=== PATIENT | female | born 1960 | race African-American/Black ===

== ENCOUNTER 2020-07-22 09:43 | Emergency (ER) | payer OTHER, SELFPAY ==
[2020-07-22 09:54] VITALS: BP 148/86; PULSE 64; RESP 16; TEMP 36.2; O2SAT 100
--- NOTE | 2020-07-22 10:10 | ED.BACK ---
HPI - Back Pain/Injury General Chief Complaint: Back Pain/Injury Stated Complaint: RIGHT HIP AND LEG PAIN Time Seen by Provider: 07/22/20 10:05 History of Present Illness HPI Narrative: Cha Skinner is a 59 yo female with PMH of HTN, high cholesterol, who comes to the ER complaining of right-sided lower back and leg pain. He states it started 2 days ago, uncomfortable particularly at night or when she sitting working on a computer. She is very active working at home with snf she has a lot of homework so she sitting in front of computer. Is not really able to stretch her leg out Related Data Allergies Allergy/AdvReac Type Severity Reaction Status Date / Time CHEMO Inhibitors Allergy Unknown Unknown Verified 07/22/20 09:50 Review of Systems Review of Systems: Narrative: CONSTITUTIONAL: Denies fever, chills, sweats. EYES: Denies visual changes, redness, discharge. ENT: Denies rhinorrhea, congestion, sore throat, otalgia. CARDIOVASCULAR: Denies chest pain, palpitations, edema. RESPIRATORY: Denies dyspnea, wheezing, cough GASTROINTESTINAL: Denies abdominal pain, nausea, vomiting, diarrhea. GENITOURINARY: Denies dysuria, hematuria, abnormal discharge SKIN: Denies rash or itching. NEUROLOGIC: Denies numbness, or focal weakness. PSYCHIATRIC: Denies anxiety or depression. Right-sided lower back and right thigh pain PMFSH Past Medical History Medical History Anemia Depression Essential (primary) hypertension History of vaginal delivery Iron deficiency anemia, unspecified Mixed hyperlipidemia due to type 2 diabetes mellitus Vitamin D deficiency Family History Family History Other Family history of premature coronary heart disease Social History Social History Smoking status: Never smoker Second hand tobacco smoke exposure: No Alcohol intake: never Gender identity (if verbalized by the patient): Female Comments At time of signature, I agree with nursing past medical, surgical, social and family history. There is no relevant family history pertinent to the presenting complaint. Exam Narrative: Exam Narrative: GENERAL: This is a well-nourished, well-developed patient, in moderate distress. HEAD: normocephalic, atraumatic. EYES: Sclera clear/white. Vision is grossly intact. EARS: External ears normal, . Hearing grossly intact. NOSE: External nose normal without nasal discharge, nares without redness, no rhinorrhea. THROAT: Mucous membranes moist NECK: Neck supple, CARDIOVASCULAR: Regular rate and rhythm without murmurs, gallops, or rubs. RESPIRATORY: Clear to auscultation. Breath sounds equal bilaterally. No wheezes, rales, or rhonchi. GASTROINTESTINAL: Abdomen soft, SKIN: warm, intact with no suspicious lesions or rash, good texture and turgor. NEURO: awake, alert, and oriented to person, place and time. There were no obvious focal neurologic abnormalities. Steady gait EXTREMITIES: Normal range of motion. BACK: Nontender without deformity; her pain on the right side is deeper not palpable, radiatesbackside of thigh Course Course Emergency Course: Prednisone 60 mg given here Started on prednisone and baclofen; unable to give NSAIDs as patient has hypertension. Explained this to patient and that she should start steroids in the morning Follow-up with PCP Vital Signs Vital signs: Vital Signs Temperature 97.1 F L 07/22/20 09:54 Pulse Rate 64 07/22/20 09:54 Respiratory Rate 16 07/22/20 09:54 Blood Pressure 148/86 H 07/22/20 09:54 Pulse Oximetry 100 07/22/20 09:54 Temperature 97.1 F L 07/22/20 09:54 Pulse Rate 64 07/22/20 09:54 Respiratory Rate 16 07/22/20 09:54 Blood Pressure 148/86 H 07/22/20 09:54 Pulse Oximetry 100 07/22/20 09:54 MDM - Back Pain/Injury Differential Diagnosis Differential diagn
[2020-07-22] MEDS: predniSONE 20 MG TABLET 60 MG PO (10:14)
== END 2020-07-22 10:36 | disposition home or self-care (01) ==
PROVIDERS: Emergency Provider Nurse Practitioner; PCP Family Medicine
DX: M54.31 Sciatica, right side (principal); I10 Essential (primary) hypertension; E78.00 Pure hypercholesterolemia, unspecified; E11.9 Type 2 diabetes mellitus without complications
CPT/HCPCS: 99213; G0463; J7512

== ENCOUNTER 2020-07-25 07:03 | Emergency (ER) | payer OTHER, SELFPAY ==
--- NOTE | ~2020-07-25 | XR_ITS ---
EXAMINATION: XR hip RT 2V w AP pelvis INDICATION: Right hip pain TECHNIQUE: AP view the pelvis and two views of the right hip are obtained. COMPARISON: 04/30/2018 FINDINGS: Bone alignment is normal. Mild hip osteoarthritis is noted. There is no fracture. Phlebolit hs are noted in the pelvis. IMPRESSION: 1. No acute osseous abnormality. Reviewed, dictated and finalized at location B.
--- NOTE | ~2020-07-25 | XR_ITS ---
EXAMINATION: XR lumbar spine 2-3V DATE: 07/25/2020 07:38 INDICATION: Back pain radiating to the right leg TECHNIQUE: Anteroposterior and lateral views of the lumbar spine, and cone-down lateral view of the l umbosacral junction were obtained. COMPARISON: None. FINDINGS: There are 3 mm of retrolisthesis of L5 on S1. Vertebral body alignment is otherwise maintai dorie. The vertebral body heights are normal. There is severe loss of intervertebral disc space height at L5-S1. No fracture is identified. There is advanced facet osteoarthritis of the lower lumbar spine . Small degenerative osteophytes project from the anterior endplates of multiple vertebral bodies. Th ere are phleboliths of the pelvis. IMPRESSION: 1. Severe lumbar spondylosis at L5-S1 without acute findings. Reviewed, dictated and finalized at location B.
[2020-07-25 07:24] VITALS: BP 173/97; PULSE 62; RESP 14; TEMP 36.8; O2SAT 99
--- NOTE | 2020-07-25 07:38 | ED.BACK ---
HPI - Back Pain/Injury General Chief Complaint: Back Pain/Injury Stated Complaint: hip pain Time Seen by Provider: 07/25/20 07:16 Source: patient Mode of arrival: ambulatory Limitations: no limitations History of Present Illness HPI Narrative: This patient is a 59 year old female who presents for evaluation right back, posterior hip pain. She states she has had pain for 1 week. THis pain has been constant and it is worse with sitting. She has been taking tylenol for her pain and she last took the medication last night. She was evaluated at [facility] days ago, and she was prescribed medrol dose pack and baclofen. She reports she has had no improvement in her pain. She denies nausea, vomiting, fever, chills, abdominal , leg weakness, numbness or tingling. She also denies urinary complaints. Onset (ago): week(s) (1) Timing: constant Related Data Allergies Allergy/AdvReac Type Severity Reaction Status Date / Time CHEMO Inhibitors Allergy Unknown Unknown Verified 07/22/20 09:50 Review of Systems Review of Systems: All systems reviewed & are unremarkable except as noted in HPI and below Constitutional: Constitutional: Denies chills and Denies fever(s) Cardiovascular: Cardiovascular: Denies chest pain Respiratory: Respiratory: Denies dyspnea Gastrointestinal: Gastrointestinal: Denies abdominal pain, Denies nausea and Denies vomiting Genitourinary: Genitourinary: Denies hematuria and Denies dysuria Musculoskeletal: Musculoskeletal: Reports back pain Neurologic: Denies focal weakness, Denies numbness and Denies weakness PMFSH Past Medical History Medical History Anemia Depression Essential (primary) hypertension History of vaginal delivery Iron deficiency anemia, unspecified Mixed hyperlipidemia due to type 2 diabetes mellitus Vitamin D deficiency Social History Social History Smoking status: Never smoker Second hand tobacco smoke exposure: No Alcohol intake: never Gender identity (if verbalized by the patient): Female Exam Const: General: no acute distress and alert Orientation/consciousness: patient oriented x3 HENMT: Head: normocephalic and atraumatic Face and sinus: face symmetric Mouth: Yes Normal oral and palatal mucosa present, Yes lip normal and Yes oropharynx normal Eyes: EOM: EOMs intact bilaterally Chest: Chest palpation & inspection: normal inspection of the chest Resp: Effort & Inspection: normal respiratory effort and no retractions Auscultation: clear to auscultation bilaterally Cardio: Rate: regular rate Rhythm: regular rhythm Heart sounds: no murmurs GI: GI Palp: Yes Soft to palpation and No Tenderness to palpation present (GI) Auscultation: normal bowel sounds Back/Spine/Pelvis: Back: no CVA tenderness Thoracic/Lumbar Spine: paraspinal muscle tenderness Skin: General skin exam: normal color Rashes: no rashes Neuro: General: patient oriented x3, moves all extremities and CN's II-XI intact bilaterally Extrem: General: normal to inspection Other: strong bilateral pedal pulses Course Reevaluation(s) Reevaluation #1: Patient reports her pain is much improved. I discussed she will need to follow up with PCP Dr Deisy Mcdaniel for further treatment of her pain, sciatica. Date: 07/25/20 Time: 09:00 Vital Signs Vital signs: Vital Signs Temperature 98.2 F 07/25/20 07:24 Pulse Rate 62 07/25/20 07:24 Respiratory Rate 14 07/25/20 07:24 Blood Pressure 173/97 H 07/25/20 07:24 Pulse Oximetry 99 07/25/20 07:24 Temperature 98.2 F 07/25/20 07:24 Pulse Rate 62 07/25/20 09:20 Respiratory Rate 12 07/25/20 09:20 Blood Pressure 164/70 H 07/25/20 09:20 Pulse Oximetry 99 07/25/20 09:20 MDM - Back Pain/Injury Lab Data Attestation: I reviewed the patient's lab results. Imaging Data Radiologist's impression: ITS Impres
[2020-07-25] MEDS: KETOROLAC (*BKC) 60 MG/2 ML VIAL IM (07:45)
[2020-07-25] MEDS: ONDANSETRON HCL ODT 4 MG TABLET PO (07:45)
[2020-07-25 09:20] VITALS: BP 164/70; PULSE 62; RESP 12; O2SAT 99
== END 2020-07-25 09:20 | disposition home or self-care (01) ==
PROVIDERS: Emergency Provider General Practice; PCP Family Medicine
DX: M54.41 Lumbago with sciatica, right side (principal); M47.816 Spondylosis without myelopathy or radiculopathy, lumbar region; Z86.2 Personal history of diseases of the blood and blood-forming organs and certain disorders involving the immune mechanism; E78.2 Mixed hyperlipidemia; E11.9 Type 2 diabetes mellitus without complications; E55.9 Vitamin D deficiency, unspecified
CPT/HCPCS: 72100; 73502; 96372; 99284; A9270; J1170; J1885

== ENCOUNTER → 2020-11-05 17:01 | Outpatient (CLI) | payer OTHER, SELFPAY ==
--- NOTE | ~2020-11-05 | MM_ITS ---
EXAMINATION: MM screening ines BI w david HISTORY: Screening TECHNIQUE: Craniocaudal and mediolateral oblique 3-D tomosynthesis images were obtained and synthetic 2-D images were generated. CAD analysis was submitted and interpreted. COMPARISON: Comparison to multiple prior studies sequentially, with oldest reviewed study dated 12/03. BREAST PARENCHYMAL COMPOSITION: There are scattered areas of fibroglandular density. FINDINGS: There is no evidence of suspicious mass, calcification, or architectural distortion to sugg est malignancy in either breast. There has been no suspicious interval change. IMPRESSION: 1. No mammographic evidence of malignancy. 2. Recommend routine screening mammography in one year. BI-RADS Category 1: Negative Reviewed, dictated and finalized at location A. ICAL TRIALS NURSE
== END ==
PROVIDERS: PCP Family Medicine; Visit Provider Family Medicine
DX: Z12.31 Encounter for screening mammogram for malignant neoplasm of breast (principal)
CPT/HCPCS: 77063; 77067

== ENCOUNTER → 2022-02-05 13:36 | Outpatient (CLI) | payer BC, SELFPAY ==
--- NOTE | ~2022-02-05 | MM_ITS ---
EXAMINATION: MM screening ines BI w david HISTORY: Screening mammogram TECHNIQUE: Craniocaudal and mediolateral oblique 3-D tomosynthesis images were obtained and synthetic 2-D images were generated. CAD analysis was submitted and interpreted. COMPARISON: 11/05/2020, 08/20/2018, 04/27/2017 bilateral screening mammogram examinations BREAST PARENCHYMAL COMPOSITION: The breasts are almost entirely fatty. FINDINGS: There is no evidence of suspicious mass, calcification, or architectural distortion to sugg est malignancy in either breast. There has been no suspicious interval change. IMPRESSION: 1. No mammographic evidence of malignancy. 2. Recommend routine screening mammography in one year. BI-RADS Category 1: Negative Reviewed, dictated and finalized at location A.
== END ==
PROVIDERS: PCP Family Medicine; Visit Provider Obstetrics & Gynecology
DX: Z12.31 Encounter for screening mammogram for malignant neoplasm of breast (principal)
CPT/HCPCS: 77063; 77067

== ENCOUNTER → 2023-05-15 13:16 | Outpatient (CLI) | payer BC, SELFPAY ==
--- NOTE | ~2023-05-15 | MM_ITS ---
EXAMINATION: MM screening ines BI w david HISTORY: Screening mammogram TECHNIQUE: Craniocaudal and mediolateral oblique 3-D tomosynthesis images were obtained and synthetic 2-D images were generated. CAD analysis was submitted and interpreted. COMPARISON: 02/05/2022, 11/05/2020, 08/20/2018 bilateral screening mammogram examinations BREAST PARENCHYMAL COMPOSITION: The breasts are almost entirely fatty. FINDINGS: There is no evidence of suspicious mass, calcification, or architectural distortion to sugg est malignancy in either breast. There has been no suspicious interval change. IMPRESSION: 1. No mammographic evidence of malignancy. 2. Recommend routine screening mammography in one year. BI-RADS Category 1: Negative Reviewed, dictated and finalized at location A.
== END ==
PROVIDERS: PCP Family Medicine; Visit Provider Obstetrics & Gynecology
DX: Z12.31 Encounter for screening mammogram for malignant neoplasm of breast (principal)
CPT/HCPCS: 77063; 77067

== ENCOUNTER → 2023-07-16 13:17 | Outpatient (CLI) | payer BC, SELFPAY ==
--- NOTE | ~2023-07-16 | DEXA_ITS ---
Bone Density Report Name: EDWARD BARRAGAN Age: 62 Sex: Female Ethnicity: Black Date of : 1960 Indication: postmenopausal; screening for osteoporosis; parental hip fracture; Referring Provider: ARIEL, ISATU Mullins Study: Bone densitometry was performed. Exam Date: July 16, 2023 Accession number: [id number] Bone Density: Region BMD T-score Z-score Classification AP Spine (L1-L4) 1.333 2.6 3.3 Normal Femoral Neck (Left) 0.919 0.6 0.9 Normal Total Hip (Left) 1.136 1.6 1.5 Normal Femoral Neck (Right) 0.973 1.1 1.3 Normal Total Hip (Right) 1.098 1.3 1.3 Normal Total Hip Mean 1.117 1.5 1.4 Normal World Health Organization criteria for BMD impression classify patients as: Normal (T-score at or above -1.0), Osteopenia (T-score between -1.0 and -2.5), or Osteoporosis (T-score at or below -2.5). 10-year Fracture Risk: FRAX not reported because: All T-scores for Spine Total, Hip Total, Femoral Neck at or above -1.0 Clinical Information Provided by Patient: Parent has had a hip fracture Has used the following medications: Vitamin D, MTV Patient maximum height was 62.25 Menopause Age: 60 Drinks caffeinated beverages Onset of menses at age 13 Number of children 1 Impression: The patient has normal bone mass. The patient has risk factors, including: parental hip fracture. Discussion: BONE DENSITY IS ABOVE THE MINIMUM DESIRABLE LEVEL AT ALL SKELETAL SITES TESTED. This patient?s bone mineral density is above the minimum desirable level (T-score -1.0 or better) at all sites measured. The patient should follow a healthful lifestyle (good nutrition with adequate calcium and vitamin D, and appropriate weight-bearing exercise). Follow-Up: Consider repeating this study in 5 years or sooner if there is some new clinical indication. Reported by: [facility] on 07/16/2023 1:44:00 PM. Reviewed, dictated and finalized at location ADeisy ENCINAS
== END ==
PROVIDERS: PCP Nurse Practitioner Family; Visit Provider Nurse Practitioner Family
DX: Z78.0 Asymptomatic menopausal state (principal)
CPT/HCPCS: 77080

== ENCOUNTER 2023-11-18 11:31 | Emergency (ER) | payer BC, SELFPAY ==
[2023-11-18 11:42] VITALS: BP 150/77; PULSE 66; RESP 16; TEMP 36.7; O2SAT 100
--- NOTE | 2023-11-18 12:09 | ED.URI ---
HPI - URI/Sore Throat General Chief Complaint: Upper Respiratory Infection Stated Complaint: breathing issue,itching eyes,ears,throat Time Seen by Provider: 11/18/23 11:55 Source: patient Mode of arrival: ambulatory Limitations: no limitations History of Present Illness HPI Narrative: Cha is a 62-year-old female patient presenting to the clinic today with complaints of nasal congestion, itchy watery eyes, ear congestion, and itchy throat. She reports her symptoms started sometime a few days before Jaon. Did have fever at the time but does not have fever now. MD elicited complaint: sore throat and nasal congestion Related Data Allergies Allergy/AdvReac Type Severity Reaction Status Date / Time CHEMO Inhibitors AdvReac Mild Unknown Verified 11/18/23 11:46 Review of Systems Review of Systems: Pertinent positives per HPI. Patient denies any fever, chills, rash, headache, visual changes, dizziness, shortness of breath, chest pain, palpitations, nausea, vomiting, diarrhea, constipation, abdominal pain, or any urinary issues. [facility] Past Medical History Medical History Anemia BMI 36.0-36.9,adult BMI 38.0-38.9,adult BMI 39.0-39.9,adult BMI 40.0-44.9, adult Depression Essential (primary) hypertension High cholesterol History of vaginal delivery Iron deficiency anemia, unspecified Mixed hyperlipidemia due to type 2 diabetes mellitus Vitamin D deficiency Surgical History Surgical History History of colposcopy Family History Family History Father Acute myocardial infarction Mother COVID-19 Sibling COVID-19 Other Family history of premature coronary heart disease Social History Social History Smoking status: Never smoker Second hand tobacco smoke exposure: No Alcohol intake: never Substance use: never Substance use type: does not use Lack of Transportation: No Lack of Food: Never True Current Housing: I Have Housing Concerned About Future Housing: No Difficulty Paying Gas/Electric Bills: No Difficulty Paying for Meds: No Currently Unemployed: No Education: Master's Degree or Higher Difficulty w/ Childcare or Family Care: No Living arrangements: alone Occupation/Education: occupation Additional occupation/education comments: 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 Gender identity (if verbalized by the patient): Female Comments At the time of my signature, I reviewed and agree with the nursing past medical, surgical, social, and family history. There is no relevant family history pertinent to the patient complaint. Exam Narrative: General: Well-developed, well nourished, in no apparent distress Head: Normocephalic, atraumatic Eyes: Pupils equally round and reactive to light bilaterally, EOM intact, sclera and conjunctive clear, watery discharge, mild lids normal Ears: TMs intact and congested, ear canals clear, no drainage, grossly hearing normal. Nose: Nares patent, yellow brown nasal drainage discharge, severe inflammation, maxillary and frontal sinus tenderness. Mouth: Oral pharynx without lesions or masses, good dentition, MMM. Postnasal drip Neck: Supple, trachea midline, no enlargement of anterior or posterior cervical nodes, no thyroid masses or goiter palpable. Cardio: Regular rate and rhythm, s1 and s2 normal, no murmur appreciated. Resp: Clear to auscultation bilaterally, no rhonchi, rales, wheezing or rubs Course Course Emergency Course: Portions of this record may have been created with voice recognition software. Level of Care: Express Care Visit Vital Signs Vital signs: Vital Signs Temperature 36.7 C 11/18/23 11:42 P
== END 2023-11-18 12:18 | disposition home or self-care (01) ==
PROVIDERS: Emergency Provider Nurse Practitioner Family
DX: J01.90 Acute sinusitis, unspecified (principal); I10 Essential (primary) hypertension; E78.00 Pure hypercholesterolemia, unspecified; D50.9 Iron deficiency anemia, unspecified; E78.2 Mixed hyperlipidemia; E11.9 Type 2 diabetes mellitus without complications; E55.9 Vitamin D deficiency, unspecified
CPT/HCPCS: 99213; G0463

== ENCOUNTER 2024-06-19 12:15 | Emergency (ER) | payer BC, SELFPAY ==
[2024-06-19 12:27] VITALS: BP 162/98; PULSE 71; RESP 18; TEMP 36.5; O2SAT 98
--- NOTE | 2024-06-19 12:30 | ED.URI ---
HPI - URI/Sore Throat General Chief Complaint: Upper Respiratory Infection Stated Complaint: post COVID home test Source: patient and RN notes reviewed Mode of arrival: ambulatory Limitations: no limitations History of Present Illness HPI Narrative: 63-year-old female history of hypertension and diabetes presenting for complaint of Headache, body aches, sinus pressure/congestion, cough, fever/chills. onset 4 days. Tested positive for COVID last night. Denies sob, wheezing, n/v/d. Reports improvement in symptoms since yesterday. Taking dayquil and tylenol, and has held off taking her blood pressure medication while she was taking these [id number] medicines. Presented because she is wondering if she should be taking any other medications for symptoms. MD elicited complaint: cough Related Data Allergies Allergy/AdvReac Type Severity Reaction Status Date / Time Penicillins Allergy Rash Verified 06/19/24 12:39 CHEMO Inhibitors AdvReac Mild Unknown Verified 06/19/24 12:18 Review of Systems Review of Systems: CONSTITUTIONAL: denies malaise, chills, sweats, fever EYES: Denies visual changes, redness, or discharge ENT: Reports rhinorrhea, congestion, denies sinus pain, otalgia, sore throat CARDIOVASCULAR: Denies chest pain, palpitations, edema RESPIRATORY: Reports cough, post nasal drainage. Denies dyspnea GASTROINTESTINAL: Denies abdominal pain, nausea, vomiting, diarrhea SKIN: Denies rash or itching MUSCULOSKELETAL: denies myalgia NEUROLOGIC: reports headache PMFSH Past Medical History Medical History Anemia BMI 36.0-36.9,adult BMI 37.0-37.9, adult BMI 38.0-38.9,adult BMI 39.0-39.9,adult BMI 40.0-44.9, adult Depression Essential (primary) hypertension High cholesterol History of vaginal delivery Iron deficiency anemia, unspecified Mixed hyperlipidemia due to type 2 diabetes mellitus Vitamin D deficiency Surgical History Surgical History History of colposcopy Family History Family History Father Acute myocardial infarction Mother COVID-19 Sibling COVID-19 Other Family history of premature coronary heart disease Social History Social History Smoking status: Never smoker Second hand tobacco smoke exposure: No Alcohol intake: never Substance use: never Substance use type: does not use Lack of Transportation: No Lack of Food: Never True Current Housing: I Have Housing Concerned About Future Housing: No Difficulty Paying Gas/Electric Bills: No Difficulty Paying for Meds: No Currently Unemployed: No Education: Master's Degree or Higher Difficulty w/ Childcare or Family Care: No Living arrangements: alone Occupation/Education: occupation Additional occupation/education comments: 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 Gender identity (if verbalized by the patient): Female Exam Narrative: GENERAL: mildly ll-appearing EYES: PERRLA, conjunctivae clear ENT: Mucous membranes moist. TMs pearly altamirano with dull light reflex bilaterally; no tragal tenderness. NECK: Supple. No lymphadenopathy CHEST: Clear to auscultation, breath sounds equal. No wheezing, rhonchi, rales, or stridor. No respiratory distress, speaks in full sentences. HEART: Regular rate and rhythm. SKIN: Warm, dry, no rash. NEURO: Alert and oriented x3. PSYCH: Normal mood and affect Course Course Emergency Course: Patient is aware of diagnosis, understands and agrees to treatment plan. Anticipatory guidance given. Patient agrees to follow-up as directed and is aware of reasons to seek care at the emergency department. Portions of this record may have been created with voice recognition software
== END 2024-06-19 12:51 | disposition home or self-care (01) ==
PROVIDERS: Emergency Provider Nurse Practitioner Family; PCP Family Medicine
DX: U07.1 COVID-19 (principal); I10 Essential (primary) hypertension; E78.00 Pure hypercholesterolemia, unspecified; E78.2 Mixed hyperlipidemia; E11.9 Type 2 diabetes mellitus without complications
CPT/HCPCS: 99213; G0463

== ENCOUNTER 2024-08-31 10:55 | Emergency (ER) | payer BC, SELFPAY ==
[2024-08-31 11:03] VITALS: BP 157/86; PULSE 79; RESP 18; TEMP 36.6; O2SAT 98
--- NOTE | 2024-08-31 11:16 | ED.NAVMDI ---
HPI - Nausea/Vomiting/Diarrhea General Chief complaint: Nausea/Vomiting/Diarrhea Stated complaint: Weakness/Nausea Time Seen by Provider: 08/31/24 11:23 Source: patient, RN notes reviewed and old records reviewed Mode of arrival: ambulatory Limitations: no limitations History of Present Illness HPI Narrative: Patient, who is a poor historian, presents today with initial complaints to RN of nausea and vomiting. Upon provider H&P, patient 1st complains of ?jitteriness and not sleeping well?. When pressed by provider, she does admit that she has had some nausea and vomiting. She is unable to state when her last successful p.o. intake was. She then begins to complain of polyuria, stating that frequent urination is the reason she is not sleeping well. She is then asked if she has diabetes, to which she replies borderline. When asked if she checks blood glucose at home she states she does not. She initially states that she takes medication to control blood glucose to provider, but denies any diabetic medications to RN. When asked further, she replies that she no longer takes medication for diabetes because she has not followed up with her primary and therefore has not had any refills. She is unable to say how long she has been without her diabetes medication. Finally, patient begins to complain of blurred vision. She states that this is why she came to [facility]. She then corrects herself and says that she has blurry vision right now because she does not have her glasses, when asked if this is reason she presented to [facility] , she states that she felt she needed a break from her computer screen at work, and this is why she wanted to be evaluated today. Related Data Allergies Allergy/AdvReac Type Severity Reaction Status Date / Time Penicillins Allergy Rash Verified 08/31/24 10:58 CHEMO Inhibitors AdvReac Mild Unknown Verified 08/31/24 10:58 Review of Systems Review of Systems: All systems reviewed & are unremarkable except as noted in HPI and below Constitutional: Constitutional: Reports as per HPI, Reports no additional constitutional complaints and Reports lethargy Eyes: Eyes: Reports blurry vision ENT: Reports system reviewed and no additional complaints, except as documented Cardiovascular: Cardiovascular: Reports no additional cardiovascular complaints Respiratory: Respiratory: Reports no additional respiratory complaints Gastrointestinal: Gastrointestinal: Reports no additional gastrointestinal complaints, Reports nausea and Reports vomiting Genitourinary: Genitourinary: Reports nocturia Psychiatric: Psychiatric: Reports anxiety PMFSH Past Medical History Medical History Anemia BMI 36.0-36.9,adult BMI 37.0-37.9, adult BMI 38.0-38.9,adult BMI 39.0-39.9,adult BMI 40.0-44.9, adult Depression Essential (primary) hypertension High cholesterol History of vaginal delivery Iron deficiency anemia, unspecified Mixed hyperlipidemia due to type 2 diabetes mellitus Vitamin D deficiency Surgical History Surgical History History of colposcopy Family History Family History Father Acute myocardial infarction Mother COVID-19 Sibling COVID-19 Other Family history of premature coronary heart disease Social History Social History Smoking status: Never smoker Second hand tobacco smoke exposure: No Alcohol intake: never Substance use: never Substance use type: does not use Lack of Transportation: No Lack of Food: Never True Current Housing: I Have Housing Concerned About Future Housing: No Difficulty Paying Gas/Electric Bills: No Difficulty Paying for Meds: No Currently Unemployed: No Education: Master's Degree or Higher Diffi
[2024-08-31 11:32] LABS: Glucose Point of Care > 500 mg/dl (65-105)
[2024-08-31 11:41] LABS: EDUAAPPEAR Cloudy; EDUABILI 1+ (Negative); EDUABLOOD Negative (Negative); EDUACOLOR1 Yellow; EDUAGLUCOSE 2+ (Negative); EDUAKETONE 1+ (Negative); EDUALEUKO Negative (Negative); EDUANITRATE Negative (Negative); EDUAPROTEIN Trace (Negative); EDUAUROBILI 0.2
== END 2024-08-31 12:03 | disposition short-term general hospital (02) ==
PROVIDERS: Emergency Provider Nurse Practitioner Family; PCP Family Medicine
DX: E11.65 Type 2 diabetes mellitus with hyperglycemia (principal); I10 Essential (primary) hypertension; E78.00 Pure hypercholesterolemia, unspecified; E78.2 Mixed hyperlipidemia
CPT/HCPCS: 81003; 82948; 99212; G0463

== ENCOUNTER 2024-08-31 12:30 | Observation (INO) | payer BC, SELFPAY ==
[2024-08-31] VITALS (7 sets, daily range): BP systolic 138–173; BP diastolic 66–90; PULSE 62–88; RESP 16–19; TEMP 36.7–37.1; O2SAT 96–100; BMI 34.9
[2024-08-31 12:40] LABS: Glucose Point of Care > 500 mg/dl (65-105)
[2024-08-31 13:23] LABS: Alveolar/Arterial O2 Gradient 30.9 mmHg; Base Excess ABG -1.6 mEq/l (+/-2.0); Carboxyhemoglobin 0.8 % THb (0-2.0); Fractional Inspired Oxygen 21 %; HCO3 ABG 22.7 mEq/l (22.0-26.0); Methemoglobin ABG 0.1 %THb (0-1.5); Oxygen Content ABG 20.4 %vol (16.0-22.0); Oxygen Saturation ABG 94.9 % (95.0-100.0); Oxyhemoglobin 93.4 % THb (90.0-100.0); PCO2 ABG 37.5 mmHg (35.0-45.0); PO2 ABG 73.9 mmHg (80.0-100.0); PO2 FiO2 Ratio Arterial Blood 3.52 %; Reduced Hemoglobin 5.7 %THb (0-5.0); Total Hemoglobin 15.5 g/dL (12.0-18.0)
[2024-08-31 13:24] LABS: Device ROOM AIR; Modified Allen's Test Pass; Site Drawn RIGHT RADIAL
[2024-08-31] MEDS: SODIUM CHLORIDE 0.9% IV 1,000 ML 999 ML IV CONT ×3 (13:46→17:02)
[2024-08-31 13:52] LABS: Basophils Percent Auto 0.4 % (0.2-1.2); Eosinophils Percent Auto 0.1 % (0-4.4); Hematocrit 45.8 % (37.0-47.0); Hemoglobin 15.1 g/dL (12.0-15.0); Immature Granulocyte Absolute 0.01 K/mm3 (0.00-0.031); Immature Granulocyte Percent A 0.1 % (0-0.5); Lymphocytes Absolute Auto 1.21 K/mm3 (0.9-3.2); Lymphocytes Percent Auto 17.5 % (18.3-44.2); Mean Corpuscular Hemoglobin 28.6 pg (26-34); Mean Corpuscular Volume 86.7 fl (80-100); Monocytes Absolute Auto 0.4 K/mm3 (0.1-0.6); Monocytes Percent Auto 5.1 % (2.6-8.5); Neutrophils Absolute Auto 5.3 K/mm3 (1.3-6.7); Neutrophils Percent Auto 76.8 % (45.5-73.1); Platelet Count Result 287 k/mm3 (150-375); Red Blood Count 5.28 M/mm3 (4.2-5.4); Red Cell Distribution Width 13.9 % (11.5-14.5); White Blood Count 6.9 K/mm3 (4.5-10.0)
[2024-08-31 14:12] LABS: Add Urine Microscopic? YES; Appearance Urine Clear (Clear); Bacteria Urine None Seen /hpf; Bilirubin Urine Negative (Negative); Blood Urine Negative (Negative); Color Urine Yellow (Yellow); Glucose Urine UA 3+ mg/dL (Negative); Hyaline Casts Urine Present /lpf; Ketones Urine 1+ mg/dL (Negative); Leukocyte Esterase Ur Negative LEU/UL (Negative); Nitrate Urine Negative (Negative); Protein Urine Trace mg/dL (Negative); RBC Urine 0-2 /hpf (0-2); Specific Grav Ur 1.037 (1.001-1.035); Squamous Epithelial Cell Urine None Seen /hpf (Few); Urobilinogen Urine 0.2 mg/dL (<2.0); WBC Urine 0-5 /hpf (0-3)
[2024-08-31 14:12] LABS: Beta-Hydroxybutyrate/Acetoacetate 2.22 mmol/L (0.02-0.27)
[2024-08-31 14:15] LABS: Alanine Aminotransferase 45 U/L (6-35); Albumin Level 5.1 g/dL (3.5-5.1); Alkaline Phosphatase 125 U/L (38-126); Anion Gap 15 mmol/L (4-12); Aspartate Amino Transferase 33 U/L (14-36); Bilirubin,Total 1.9 mg/dL (0.2-1.3); Blood Urea Nitrogen 30 mg/dL (7-17); Calcium 10.7 mg/dL (8.4-10.2); Carbon Dioxide 27 mmol/L (22-30); Chloride 105 mmol/L (98-107); Estimated CRCL calculation 46 ml/min; Estimated Glomerular Filt Rate > 60; Glucose 562 mg/dL (65-110); Magnesium 2.6 mg/dL (1.6-2.3); Phosphorus 5.6 mg/dL (2.5-4.5); Potassium 4.7 mmol/L (3.4-5.0); Sodium 147 mmol/L (137-145)
[2024-08-31] MEDS: INSULIN HUMAN REGULAR (*BKC) 100 UNITS/ML 8 UNITS IV PUSH (14:30)
--- NOTE | 2024-08-31 14:59 | ED.GENADULT ---
HPI - General Adult General Chief complaint: Recheck/Abnormal Lab/Rx Stated complaint: High blood sugar Time Seen by Provider: 08/31/24 12:43 History of Present Illness HPI narrative: patient is a 63-year-old female who presents ER with feeling fatigued injury. She was seen at an urgent care referred here due to blood sugars greater than 500. Patient has known history of diabetes but has not been on metformin for months. She used to take Ozempic but has not been on that either. She reports over last few days she has had increased thirst in her mouth is incredibly dry. She reports her vision has been somewhat blurry and that was 1 of the precipitating factors for her going to urgent care today. No chest pain or chest pressure. She is without GI complaints. Related Data Allergies Allergy/AdvReac Type Severity Reaction Status Date / Time Penicillins Allergy Rash Verified 08/31/24 10:58 CHEMO Inhibitors AdvReac Mild Unknown Verified 08/31/24 10:58 Review of Systems Review of Systems: All systems reviewed & are unremarkable except as noted in HPI and below Constitutional: Constitutional: Denies chills, Reports fatigue and Denies fever(s) ENT: Reports system reviewed and no additional complaints, except as documented Cardiovascular: Cardiovascular: Reports no additional cardiovascular complaints Respiratory: Respiratory: Reports no additional respiratory complaints Genitourinary: Genitourinary: Reports no additional female genitourinary complaints [facility] Past Medical History Medical History Anemia BMI 36.0-36.9,adult BMI 37.0-37.9, adult BMI 38.0-38.9,adult BMI 39.0-39.9,adult BMI 40.0-44.9, adult Depression Essential (primary) hypertension High cholesterol History of vaginal delivery Iron deficiency anemia, unspecified Mixed hyperlipidemia due to type 2 diabetes mellitus Vitamin D deficiency Surgical History Surgical History History of colposcopy Family History Family History Father Acute myocardial infarction Mother COVID-19 Sibling COVID-19 Other Family history of premature coronary heart disease Social History Social History Smoking status: Never smoker Second hand tobacco smoke exposure: No Alcohol intake: never Substance use: never Substance use type: does not use Lack of Transportation: No Lack of Food: Never True Current Housing: I Have Housing Concerned About Future Housing: No Difficulty Paying Gas/Electric Bills: No Difficulty Paying for Meds: No Currently Unemployed: No Education: Master's Degree or Higher Difficulty w/ Childcare or Family Care: No Living arrangements: alone Occupation/Education: occupation Additional occupation/education comments: 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 [employer] [facility]. Gender identity (if verbalized by the patient): Female Exam Narrative: GENERAL: Well-appearing, Obese, and in no acute distress. HEAD: Normocephalic, atraumatic. EYES: PERRLA and EOMI. visual acuity 20/30 in each eye with glasses on. ENT: Mucous membranes moist. CHEST: Clear to auscultation. No respiratory distress. HEART: Regular rate and rhythm. Normal peripheral pulses. ABDOMEN: Soft, nontender, nondistended. EXTREMITIES: Normal range of motion. No edema. SKIN: Warm, dry, no rash. NEURO: Alert and oriented x3. PSYCH: Normal mood and affect. Course Course Emergency Course: Persistent hyperglycemia after 3 L IV fluid and 8 units of insulin. Patient has very dry will need to be admitted for observation for blood glucose management. Accepted by the hospitalist. Vital Signs Vital signs: Vital Signs Temperature 98.1 F 08/31/24 12:29 Pulse Rate
[2024-08-31 15:47] LABS: Glucose Point of Care 417 mg/dl (65-105)
[2024-08-31 17:30] LABS: Anion Gap 10 mmol/L (4-12); Blood Urea Nitrogen 27 mg/dL (7-17); Calcium 9.6 mg/dL (8.4-10.2); Carbon Dioxide 28 mmol/L (22-30); Chloride 113 mmol/L (98-107); Estimated CRCL calculation 56 ml/min; Estimated Glomerular Filt Rate > 60; Glucose 392 mg/dL (65-110); Potassium 3.8 mmol/L (3.4-5.0); Sodium 151 mmol/L (137-145)
--- NOTE | 2024-08-31 19:00 | PM.IMHP ---
H&P: HPI History of Present Illness Date/Time: 08/31/24 20:00 Chief Complaint: High blood sugar. Narrative: This is a very pleasant 63-year-old female with reported history of prediabetes (however her hemoglobin A1c was 7.3% in April 2023), hypertension, hyperlipidemia, and iron deficiency anemia who presented to the emergency department from urgent care for evaluation of high blood sugar. The patient provides the following history. The last couple of days she has not been able to hold down anything. She otherwise feels okay and denies fever, chills, sweats, sinus congestion, sore throat, cough, chest pain, shortness of breath, epigastric and abdominal pain, dysphagia, hematemesis, diarrhea, melena, hematochezia, and dysuria. She went to urgent care and was found to have a glucose over 500 and was referred to the emergency department. With further questioning she admits that she stops taking metformin after she ran out of her prescription a few months ago and she has not been monitoring her glucose at home. She has lost 20 lb unintentionally in the last several weeks and reports increase in thirst and occasional blurry vision. In the ED: Blood pressures have been running a bit high though she has not been able to hold down her medications. The remainder of her vital signs are stable. Labs were significant for WBC count of 6.9, hemoglobin 15.1, sodium 147, carbon dioxide 27, anion gap 15, BUN 30, creatinine 1.10, glucose 562, calcium 10.7, total protein 9.0, beta hydroxybutyrate 2.22. Urinalysis was positive for 3+ glucose and 1+ ketones. Specific gravity was high. She received a total of 3 L normal saline and 8 units IV insulin with normalization of her anion gap and improvement in her glucose. She is being admitted to the IMU in this setting for further treatment. Review of Systems Review of Systems: 12 systems were reviewed and are negative except for as per HPI. [facility] Past Medical History Medical History Depression Essential (primary) hypertension Iron deficiency anemia, unspecified Mixed hyperlipidemia Type 2 diabetes mellitus Vitamin D deficiency Surgical History Surgical History History of colposcopy Family History Family History Father Acute myocardial infarction Mother COVID-19 Sibling COVID-19 Other Family history of premature coronary heart disease Social History Social History (Updated 09/01/24 @ 00:28 by Shaina Sue PA-C) Social History: Surrogate medical decision maker: Loan Villanueva, sister. Code status: Full code. Smoking status: Never smoker Second hand tobacco smoke exposure: No Alcohol intake: never Substance use: never Substance use type: does not use Do You Feel Safe in your Home?: Yes Lack of Transportation: No Lack of Food: Never True Current Housing: I Have Housing Concerned About Future Housing: No Difficulty Paying Gas/Electric Bills: No Difficulty Paying for Meds: No Currently Unemployed: No Education: Master's Degree or Higher Difficulty w/ Childcare or Family Care: No Living arrangements: alone Occupation/Education: occupation Additional occupation/education comments: Master's in Social Work. Spiritual care concerns: No Meds Home Medications and Allergies Home Medications Medication Instructions Recorded Confirmed Type hydrochlorothiazide 25 mg tablet 25 mg PO DAILY #90 tabs 03/11/23 08/31/24 Rx rosuvastatin 10 mg tablet 10 mg PO DAILY #90 tabs 04/15/23 08/31/24 Rx aspirin 81 mg chewable tablet 81 mg PO DAILY 08/31/24 08/31/24 History cholecalciferol (vitamin D3) 25 25 mcg PO DAILY 08/31/24 08/31/24 History mcg (1,000 unit) capsule (Vitamin D3) Allergies Allergy/AdvReac Type Severity Reaction Status
--- NOTE | 2024-08-31 19:32 | ADMGEN ---
This patient, Cha Skinner, was admitted to IMU Room 212-01. Patient/family oriented to hospital policies and general routines including ID bracelet, bed and alarms, visiting hours, pain management, procedures, bathroom and other care routines, personal items, smoking policy, room service/diet, and visiting hours. Information on how to activate the Rapid Response Team has been discussed. Patient/Family are encouraged to report perceived risks to care and to ask questions if they do not understand what they are told or what they should do.
[2024-08-31] MEDS: SODIUM CHLORIDE 0.9% IV 1,000 ML 125 ML IV CONT (20:15)
[2024-08-31] MEDS: ONDANSETRON INJ 4 MG/2 ML VIAL IV PUSH ×2 (20:15→23:56)
[2024-08-31 20:26] LABS: Glucose Point of Care 326 mg/dl (65-105)
[2024-08-31] MEDS: SODIUM CHLORIDE 0.45% 1,000 ML 85 ML IV CONT (22:44)
[2024-08-31 23:00] LABS: Hemoglobin A1C 13.2 % (<5.7)
[2024-08-31] MEDS: INSULIN GLARGINE (*BKC) 100 UNITS/ML 15 UNITS SUB-Q (23:52)
[2024-09-01] VITALS (17 sets, daily range): BP systolic 129–151; BP diastolic 61–75; PULSE 55–72; RESP 16–24; TEMP 36.5–36.9; O2SAT 93–100; BMI 34.9
[2024-09-01 00:09] LABS: Glucose Point of Care 327 mg/dl (65-105)
[2024-09-01 04:53] LABS: Hemoglobin 13.1 g/dL (12.0-15.0); Mean Corpuscular Hemoglobin 28.6 pg (26-34); Mean Corpuscular Volume 89.5 fl (80-100); Mean Platelet Volume 11.8 fl (7.4-10.4); Platelet Count Result 258 k/mm3 (150-375); Red Blood Count 4.58 M/mm3 (4.2-5.4); Red Cell Distribution Width 14.2 % (11.5-14.5); White Blood Count 6.5 K/mm3 (4.5-10.0)
[2024-09-01 05:04] LABS: Anion Gap 10 mmol/L (4-12); Blood Urea Nitrogen 25 mg/dL (7-17); Calcium 9.4 mg/dL (8.4-10.2); Carbon Dioxide 24 mmol/L (22-30); Chloride 116 mmol/L (98-107); Estimated CRCL calculation 62 ml/min; Estimated Glomerular Filt Rate > 60; Glucose 303 mg/dL (65-110); Magnesium 2.6 mg/dL (1.6-2.3); Sodium 150 mmol/L (137-145)
[2024-09-01] MEDS: INSULIN ASPART (*BKC) 100 UNITS/ML SUB-Q ×2 (06:18→13:01)
[2024-09-01 06:26] LABS: Glucose Point of Care 295 mg/dl (65-105)
[2024-09-01 07:41] LABS: Glucose Point of Care 275 mg/dl (65-105)
[2024-09-01] MEDS: SODIUM CHLORIDE 0.45% 1,000 ML 100 ML IV CONT (09:28)
[2024-09-01] MEDS: ONDANSETRON INJ 4 MG/2 ML VIAL IV PUSH ×2 (09:29→17:18)
[2024-09-01] MEDS: ROSUVASTATIN 10 MG TABLET PO (09:29)
[2024-09-01] MEDS: CHOLECALCIFEROL 1,000 UNITS TABLET 1000 UNITS PO (09:29)
[2024-09-01] MEDS: ASPIRIN 81 MG CHEWABLE TABLET PO (09:29)
[2024-09-01 11:13] LABS: Glucose Point of Care 304 mg/dl (65-105)
--- NOTE | 2024-09-01 14:17 | PM.IMPN ---
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 continue Accuchecks hbaic is 13 (2) Dehydration: Code(s): E86.0 - Dehydration Status: Acute Assessment and Plan: Continue fluids watch sodium levels continue nephrology sodium is 150 (3) Essential (primary) hypertension: Code(s): I10 - Essential (primary) hypertension Status: Acute Assessment and Plan: restart home medications (4) Mixed hyperlipidemia: Code(s): E78.2 - Mixed hyperlipidemia Status: Acute Assessment and Plan: restart home medications Subjective Date/time seen: 09/01/24 14:17 Interval history: The patient presented to the emergency department from urgent care with a glucose over 500 after several days of vomiting. new DM sodium is 150s, glucose is 303, hbaic is 13 Continue to monitor in hospital with fluids and lantus at night Watch AccuCheck consult DM educator Review of Systems Review of Systems: Pt feels tired and nauseated today Exam Narrative: General: Mildly ill-appearing female tired and weak Respiratory: Lungs are clear to auscultation bilaterally. Cardiovascular: Regular rate and rhythm with S1-S2. Gastrointestinal: Abdomen is soft, nontender, and nondistended with positive bowel sounds. Skin: Warm and dry. No rash or lesions on limited exam. Extremities: No cyanosis, clubbing, or edema. Radial and pedal pulses intact. Neurological: Alert. Cranial nerves 2-12 are grossly intact. No gross focal deficits to casual conversation. Psychiatric: Pleasant and cooperative with normal mood and affect. Judgment and insight intact. Objective Data Vital Signs Vital Signs: Vital Signs - 24 hr 08/31/24 19:15 08/31/24 19:56 08/31/24 14:30 Temperature 37.1 C 36.8 C Pulse Rate 74 82 Respiratory Rate 16 19 Blood Pressure 173/88 H 140/87 Pulse Oximetry 100 99 Oxygen Delivery Room Air 08/31/24 16:30 08/31/24 23:54 09/01/24 00:00 Temperature 37.0 C 36.9 C Pulse Rate 88 62 Respiratory Rate 17 16 Blood Pressure 140/77 138/66 Pulse Oximetry 100 99 Oxygen Delivery Room Air 08/31/24 20:00 08/31/24 22:00 09/01/24 00:00 Temperature Pulse Rate 72 66 62 Respiratory Rate Blood Pressure Pulse Oximetry Oxygen Delivery 09/01/24 02:00 09/01/24 04:00 09/01/24 04:00 Temperature 36.5 C Pulse Rate 60 58 L 61 Respiratory Rate 16 Blood Pressure 141/75 H Pulse Oximetry 97 Oxygen Delivery 09/01/24 04:00 09/01/24 06:00 09/01/24 07:23 Temperature 36.7 C Pulse Rate 61 59 L Respiratory Rate 24 H Blood Pressure 151/71 H Pulse Oximetry 98 Oxygen Delivery Room Air 09/01/24 07:54 09/01/24 09:06 09/01/24 08:00 Temperature Pulse Rate 72 Respiratory Rate Blood Pressure Pulse Oximetry 93 Oxygen Delivery Room Air Room Air 09/01/24 10:00 09/01/24 11:23 09/01/24 12:00 Temperature 36.9 C Pulse Rate 63 59 L 62 Respiratory Rate 20 Blood Pressure 137/69 Pulse Oximetry 100 Oxygen Delivery 09/01/24 12:00 Temperature Pulse Rate Respiratory Rate Blood Pressure Pulse Oximetry Oxygen Delivery Room Air Intake/Output Intake/Output: Intake & Output 08/29/24 08/30/24 08/31/24 09/01/24 23:59 23:59 23:59 23:59 Intake Total 3000 1520.0 Output Total 700 Balance 3000 820.0 Meds/Results Medications: Active Medications Generic Name Dose Route Start Last Admin Trade Name Christi PRN Reason Stop Dose Admin Acetaminophen 650 mg 08/31/24 17:38 Acetaminophen 325 Mg Tablet PO Q4H PRN Mild Pain (1-3) or Fever Hydrocodone Bitart/Acetaminophen 1 tab
--- NOTE | 2024-09-01 14:50 | PM.CNNEP ---
Assessment and Plan Assessment and plan (1) Hypernatremia: Code(s): E87.0 - Hyperosmolality and hypernatremia Status: Acute Assessment and Plan: as noted on admission suspect some acute worseing by aggressive normal saline IVF resuscitation likely due to significant free water deficit due to poor oral intake along with nausea + vomiting prior to admission on half normal saline - should provide some volume and some free water encourage free water intake as tolerated may need to consider D5W IVFs depending on trend follow repeat sodium levels (2) Diabetic ketoacidosis associated with type 2 diabetes mellitus: Code(s): E11.10 - Type 2 diabetes mellitus with ketoacidosis without coma Status: Acute Assessment and Plan: resolving (if not resolved) as noted on presentation: hyperglycemia elevated betahydroxybutyrate mild ketones in urine improvement noted in ER with aggressive IVF hydration and IV insulin (3) Essential (primary) hypertension: Code(s): I10 - Essential (primary) hypertension Status: Acute Assessment and Plan: elevated on admission more reasonable control at this time follow trend of hemodynamics (4) Type 2 diabetes mellitus: Code(s): E11.9 - Type 2 diabetes mellitus without complications Status: Acute Assessment and Plan: see #2 follow accu-cheks HgbA1c quite elevated glycemic control per hospitalist I will continue to follow the patient with you while she remains hospitalized and make further recommendations as deemed necessary. Thank you for allowing me to participate in the care of this patient. History of Present Illness Reason for Consult Consult date: 09/02/24 Reason for consult: hypernatremia Chief Complaint Chief complaint: Hyperglycemia Review of Systems Review of Systems: As per HPI. [facility] Past Medical History Medical History Depression Essential (primary) hypertension Iron deficiency anemia, unspecified Mixed hyperlipidemia Type 2 diabetes mellitus Vitamin D deficiency Surgical History Surgical History History of colposcopy Family History Family History Father Acute myocardial infarction Mother COVID-19 Sibling COVID-19 Other Family history of premature coronary heart disease Social History Social History (Updated 09/01/24 @ 00:28 by Shaina Sue PA-C) Social History: Surrogate medical decision maker: Loan Villanueva, sister. Code status: Full code. Smoking status: Never smoker Second hand tobacco smoke exposure: No Alcohol intake: never Substance use: never Substance use type: does not use Do You Feel Safe in your Home?: Yes Lack of Transportation: No Lack of Food: Never True Current Housing: I Have Housing Concerned About Future Housing: No Difficulty Paying Gas/Electric Bills: No Difficulty Paying for Meds: No Currently Unemployed: No Education: Master's Degree or Higher Difficulty w/ Childcare or Family Care: No Living arrangements: alone Occupation/Education: occupation Additional occupation/education comments: Master's in Social Work. Spiritual care concerns: No Meds Home Medications and Allergies Home Medications Medication Instructions Recorded Confirmed Type hydrochlorothiazide 25 mg tablet 25 mg PO DAILY #90 tabs 03/11/23 08/31/24 Rx rosuvastatin 10 mg tablet 10 mg PO DAILY #90 tabs 04/15/23 08/31/24 Rx aspirin 81 mg chewable tablet 81 mg PO DAILY 08/31/24 08/31/24 History cholecalciferol (vitamin D3) 25 25 mcg PO DAILY 08/31/24 08/31/24 History mcg (1,000 unit) capsule (Vitamin D3) Allergies Allergy/AdvReac Type Severity Reaction Status Date / Time Penicillins
[2024-09-01 15:29] LABS: Glucose Point of Care 241 mg/dl (65-105)
[2024-09-01 16:15] LABS: Glucose Point of Care 209 mg/dl (65-105)
[2024-09-01 17:49] LABS: Anion Gap 9 mmol/L (4-12); Blood Urea Nitrogen 21 mg/dL (7-17); Calcium 9.4 mg/dL (8.4-10.2); Carbon Dioxide 27 mmol/L (22-30); Chloride 112 mmol/L (98-107); Estimated CRCL calculation 62 ml/min; Estimated Glomerular Filt Rate > 60; Glucose 206 mg/dL (65-110); Potassium 3.5 mmol/L (3.4-5.0); Sodium 148 mmol/L (137-145)
[2024-09-01 20:13] LABS: Glucose Point of Care 221 mg/dl (65-105)
[2024-09-01] MEDS: METOCLOPRAMIDE HCL INJ 10 MG/2 ML VIAL IV PUSH (20:43)
[2024-09-01] MEDS: SODIUM CHLORIDE 0.45% 1,000 ML 75 ML IV CONT (20:43)
[2024-09-01] MEDS: INSULIN GLARGINE (*BKC) 100 UNITS/ML 20 UNITS SUB-Q (20:44)
--- NOTE | 2024-09-01 22:16 | PC.NURSE ---
2030: Discussed 2100 blood sugar, insulin orders and patient appetite with IRA Granados. RN instructed to administer lantus but wait to give novolog and recheck sugar at 2300.
[2024-09-02] VITALS (16 sets, daily range): BP systolic 140–153; BP diastolic 61–90; PULSE 53–90; RESP 16–20; TEMP 36.4–36.8; O2SAT 98–100; BMI 34.9
[2024-09-02 00:07] LABS: Glucose Point of Care 186 mg/dl (65-105)
[2024-09-02 04:37] LABS: Hematocrit 40.9 % (37.0-47.0); Hemoglobin 12.8 g/dL (12.0-15.0); Mean Corpuscular HGB Conc 31.3 g/dl (32-36); Mean Corpuscular Hemoglobin 27.8 pg (26-34); Mean Corpuscular Volume 88.9 fl (80-100); Mean Platelet Volume 11.7 fl (7.4-10.4); Platelet Count Result 188 k/mm3 (150-375); Red Cell Distribution Width 13.9 % (11.5-14.5); White Blood Count 5.7 K/mm3 (4.5-10.0)
[2024-09-02 04:47] LABS: Alanine Aminotransferase 34 U/L (6-35); Albumin Level 3.9 g/dL (3.5-5.1); Alkaline Phosphatase 88 U/L (38-126); Anion Gap 10 mmol/L (4-12); Aspartate Amino Transferase 41 U/L (14-36); Bilirubin,Total 2.5 mg/dL (0.2-1.3); Blood Urea Nitrogen 20 mg/dL (7-17); Calcium 8.8 mg/dL (8.4-10.2); Carbon Dioxide 22 mmol/L (22-30); Chloride 113 mmol/L (98-107); Estimated CRCL calculation 71 ml/min; Estimated Glomerular Filt Rate > 60; Glucose 191 mg/dL (65-110); Magnesium 2.3 mg/dL (1.6-2.3); Phosphorus 2.9 mg/dL (2.5-4.5); Potassium 3.7 mmol/L (3.4-5.0); Sodium 145 mmol/L (137-145)
--- NOTE | 2024-09-02 06:38 | PC.NURSE ---
Started referral for DMT and MSNT. Info. sheet faxed to Dr. Chang, PCP.
[2024-09-02 07:38] LABS: Glucose Point of Care 192 mg/dl (65-105)
[2024-09-02] MEDS: ASPIRIN 81 MG CHEWABLE TABLET PO (08:26)
[2024-09-02] MEDS: CHOLECALCIFEROL 1,000 UNITS TABLET 1000 UNITS PO (08:26)
[2024-09-02] MEDS: ROSUVASTATIN 10 MG TABLET PO (08:26)
--- NOTE | 2024-09-02 08:40 | PM.IMPN ---
Progress Note: A&P Assessment and Plan (1) Diabetic ketoacidosis associated with type 2 diabetes mellitus: Code(s): E11.10 - Type 2 diabetes mellitus with ketoacidosis without coma Status: Acute (2) Dehydration: Code(s): E86.0 - Dehydration Status: Acute (3) Essential (primary) hypertension: Code(s): I10 - Essential (primary) hypertension Status: Acute (4) Mixed hyperlipidemia: Code(s): E78.2 - Mixed hyperlipidemia Status: Acute Plan 63-year-old female who presented to the ER with fatigue and hyperglycemia more than 500. Known history of diabetes but has not been on metformin for months. She used to take Ozempic but has not been on that either increased thirst blurry vision. No chest pain or shortness of breath. She has lost 20 lb unintentionally. She also reported for the last couple days she has not been able to hold anything down. In the ED blood pressure been running a bit high. Labs were significant for WBC 6.9 hemoglobin 15.1 sodium 147 carbon dioxide 27 anion gap 15 BUN 30 creatinine 1.1 glucose calcium 10.7 total protein 9 beta hydroxybutyrate 2.22. Urinalysis positive for 3+ glucose and 1+ ketones. Specific gravity was high. Patient received IV fluid resuscitation received 8 units of IV insulin with normalization of her anion gap and improvement of glucose. Admitted IMU for further treatment. Mild DKA started on Lantus and SSI clinical appeals reviewer hemoglobin A1c came back at 13. Lantus 20 units and prandial insulin. Discussed DC home on insulin. edi programmer analyst to see. Abnormal taste could be related to hyperglycemia however no other specific local pathology noted. Will continue to monitor with improvement of blood sugar during the hospital stay. Dehydration with hyponatremia nephrology consulted in sodium level has normalized now. Hypertension Hyperlipidemia DVT prophylaxis Subjective Date/time seen: 09/02/24 08:40 Interval history: Complains of metallic taste not able to eat anything because of this. No nausea vomiting. She has been taking her pills with water denies any abdominal pain chest pain. Review of Systems Review of Systems: All systems reviewed & are unremarkable except as noted in HPI and below Exam Narrative: General: Mildly ill-appearing female tired and weak not in acute distress Oral mucosa with no acute lesions noted Respiratory: Lungs are clear to auscultation bilaterally. Cardiovascular: Regular rate and rhythm with S1-S2. Gastrointestinal: Abdomen is soft, nontender, and nondistended with positive bowel sounds. Skin: Warm and dry. No rash or lesions on limited exam. Extremities: No cyanosis, clubbing, or edema. Radial and pedal pulses intact. Neurological: Alert. Cranial nerves 2-12 are grossly intact. No gross focal deficits to casual conversation. Psychiatric: Pleasant and cooperative with normal mood and affect. Judgment and insight intact. Objective Data Vital Signs Vital Signs: Vital Signs - 24 hr 09/01/24 09:06 09/01/24 10:00 09/01/24 11:23 Temperature 98.4 F Pulse Rate 63 59 L Respiratory Rate 20 Blood Pressure 137/69 Pulse Oximetry 93 100 Oxygen Delivery Room Air 09/01/24 12:00 09/01/24 12:00 09/01/24 15:15 Temperature 98.5 F Pulse Rate 62 60 Respiratory Rate 24 H Blood Pressure 141/75 H Pulse Oximetry 98 Oxygen Delivery Room Air 09/01/24 14:00 09/01/24 16:00 09/01/24 16:00 Temperature Pulse Rate 60 65 Respiratory Rate Blood Pressure Pulse Oximetry Oxygen Delivery Room Air 09/01/24 18:00 09/01/24 20:00 09/01/24 20:00 Temperature 98.2 F Pulse Rate 65 56 L 70 Respiratory Rate 16 Blood Pressure 137/65 Pulse Oximetry 99 Oxygen Delivery 09/01/24 20:00 09/01/24 22:00 09/01/24 23:52 Temperature 98.1 F Pulse Rate 59 L 55 L Respiratory Rate 16 Blood Pressure 129/61 Pulse Oximetry 99 Oxygen Delivery Room Air 1
--- NOTE | 2024-09-02 09:40 | PM.PNNEP ---
Progress Note: A&P Assessment and Plan (1) Hypernatremia: Code(s): E87.0 - Hyperosmolality and hypernatremia Status: Acute Assessment and Plan: resolved/resolving noted on admission suspect some acute worsening by aggressive normal saline IVF resuscitation likely due to significant free water deficit due to poor oral intake along with nausea + vomiting prior to admission on half normal saline - should provide some volume and some free water encourage free water intake as tolerated follow repeat sodium levels (2) Diabetic ketoacidosis associated with type 2 diabetes mellitus: Code(s): E11.10 - Type 2 diabetes mellitus with ketoacidosis without coma Status: Acute Assessment and Plan: resolving (if not resolved) as noted on presentation: hyperglycemia elevated betahydroxybutyrate mild ketones in urine improvement noted in ER with aggressive IVF hydration and IV insulin (3) Essential (primary) hypertension: Code(s): I10 - Essential (primary) hypertension Status: Acute Assessment and Plan: elevated on admission more reasonable control at this time follow trend of hemodynamics (4) Type 2 diabetes mellitus: Code(s): E11.9 - Type 2 diabetes mellitus without complications Status: Acute Assessment and Plan: see #2 follow accu-cheks HgbA1c quite elevated glycemic control per hospitalist Not much else to add -- will continue to follow from a distance. Subjective Date/time seen: 09/02/24 09:40 Interval history: Follow-up for acute hypernatremia. Sodium level appears to have normalized with current interventions/therapy; still having some difficulty eating/drinking at this time; reports a metal-like taste in her mouth making oral intake difficult; has been able to drink some fluids and take medications; no apparent distress noted. Exam Narrative: General: WD/WN female in NAD Heart: normal S1 and S2; no rub Lungs: clear to auscultation Abdomen: soft, nontender, nondistended, positive bowel sounds Extremities: no cyanosis or clubbing; no edema Skin: warm and dry Objective Data Vital Signs Vital Signs: Vital Signs Temp Pulse Resp BP Pulse Ox O2 Del Method 09/02/24 08:00 57 L 09/02/24 07:21 97.6 F 56 L 20 151/81 H 100 09/02/24 06:00 54 L 09/02/24 04:00 53 L 09/02/24 04:00 98.2 F 58 L 16 145/61 H 98 09/02/24 04:00 Room Air 09/02/24 00:00 Room Air 09/02/24 02:00 59 L 09/02/24 00:00 60 09/01/24 23:52 98.1 F 55 L 16 129/61 99 09/01/24 22:00 59 L 09/01/24 20:00 Room Air 09/01/24 20:00 70 09/01/24 20:00 98.2 F 56 L 16 137/65 99 09/01/24 18:00 65 09/01/24 16:00 Room Air 09/01/24 16:00 65 09/01/24 14:00 60 09/01/24 15:15 98.5 F 60 24 H 141/75 H 98 Intake/Output Intake/Output: Intake & Output 08/30/24 08/31/24 09/01/24 09/02/24 23:59 23:59 23:59 23:59 Intake Total 3000 2860.0 1400 Output Total 950 Balance 3000 1910.0 1400 Meds/Results Medications: Active Medications Generic Name Dose Route Start Last Admin Trade Name Freq PRN Reason Stop Dose Admin Acetaminophen 650 mg 08/31/24 17:38 Acetaminophen 325 Mg Tablet PO Q4H PRN Mild Pain (1-3) or Fever Hydrocodone Bitart/Acetaminophen 1 tab 08/31/24 17:38 Hydrocodone/Acetaminophen (*Crx) 5-325 Mg Tablet PO Q4H PRN Pain Rated 4-6 Aspirin 81 mg 09/01/24 09:00 09/02/24 08:26 Aspirin 81 Mg Chewable Tablet PO 81 mg DAILY OTONIEL Administration Dextrose 12.5 gm 08/31/24 22:16 Dextrose 50% 25 Gm/50 Ml Syringe IV PUSH PRN PRN Hypoglycemia Protocol Glucagon 1 mg 08/31/24 22:16 Glucagon For Inj 1 Mg Vial IM PRN PRN Hypoglycemia Protocol Glucose 15 gm 08/31/24 22:16 Glucose Oral Gel 15 Gm Of Glucse In 37.5 G
[2024-09-02] MEDS: SODIUM CHLORIDE 0.45% 1,000 ML 75 ML IV CONT (10:41)
[2024-09-02 11:33] LABS: Glucose Point of Care 235 mg/dl (65-105)
[2024-09-02] MEDS: INSULIN ASPART (*BKC) 100 UNITS/ML SUB-Q (11:59)
[2024-09-02 15:39] LABS: Glucose Point of Care 148 mg/dl (65-105)
[2024-09-02 20:07] LABS: Glucose Point of Care 146 mg/dl (65-105)
[2024-09-02] MEDS: INSULIN GLARGINE (*BKC) 100 UNITS/ML 20 UNITS SUB-Q (21:00)
[2024-09-03] VITALS (8 sets, daily range): BP systolic 125–138; BP diastolic 66–88; PULSE 56–77; RESP 16; TEMP 36.6–36.8; O2SAT 97–99
[2024-09-03] MEDS: SODIUM CHLORIDE 0.45% 1,000 ML 75 ML IV CONT (00:25)
[2024-09-03 05:04] LABS: Basophils Absolute Auto 0.1 K/mm3 (0.0-0.1); Basophils Percent Auto 0.9 % (0.2-1.2); Eosinophils Absolute Auto 0.1 K/mm3 (0-0.3); Eosinophils Percent Auto 1.1 % (0-4.4); Hematocrit 36.7 % (37.0-47.0); Hemoglobin 12.4 g/dL (12.0-15.0); Immature Granulocyte Absolute 0.01 K/mm3 (0.00-0.031); Immature Granulocyte Percent A 0.2 % (0-0.5); Lymphocytes Absolute Auto 2.27 K/mm3 (0.9-3.2); Lymphocytes Percent Auto 42.5 % (18.3-44.2); Mean Corpuscular HGB Conc 33.8 g/dl (32-36); Mean Corpuscular Volume 85.9 fl (80-100); Mean Platelet Volume 11.4 fl (7.4-10.4); Monocytes Absolute Auto 0.4 K/mm3 (0.1-0.6); Monocytes Percent Auto 7.9 % (2.6-8.5); Neutrophils Absolute Auto 2.5 K/mm3 (1.3-6.7); Neutrophils Percent Auto 47.4 % (45.5-73.1); Platelet Count Result 209 k/mm3 (150-375); Red Blood Count 4.27 M/mm3 (4.2-5.4); Red Cell Distribution Width 13.5 % (11.5-14.5); White Blood Count 5.3 K/mm3 (4.5-10.0)
[2024-09-03 05:19] LABS: Alanine Aminotransferase 38 U/L (6-35); Albumin Level 3.6 g/dL (3.5-5.1); Alkaline Phosphatase 81 U/L (38-126); Anion Gap 8 mmol/L (4-12); Aspartate Amino Transferase 48 U/L (14-36); Bilirubin,Total 2.8 mg/dL (0.2-1.3); Blood Urea Nitrogen 17 mg/dL (7-17); Calcium 8.5 mg/dL (8.4-10.2); Carbon Dioxide 24 mmol/L (22-30); Chloride 109 mmol/L (98-107); Estimated CRCL calculation 71 ml/min; Estimated Glomerular Filt Rate > 60; Glucose 135 mg/dL (65-110); Sodium 141 mmol/L (137-145)
[2024-09-03 07:56] LABS: Glucose Point of Care 138 mg/dl (65-105)
[2024-09-03] MEDS: CHOLECALCIFEROL 1,000 UNITS TABLET 1000 UNITS PO (08:29)
[2024-09-03] MEDS: ROSUVASTATIN 10 MG TABLET PO (08:29)
[2024-09-03] MEDS: ASPIRIN 81 MG CHEWABLE TABLET PO (08:29)
[2024-09-03] MEDS: ACETAMINOPHEN 325 MG TABLET 650 MG PO (08:31)
[2024-09-03 11:46] LABS: Glucose Point of Care 229 mg/dl (65-105)
[2024-09-03] MEDS: INSULIN ASPART (*BKC) 100 UNITS/ML SUB-Q (11:51)
[2024-09-03] MEDS: POTASSIUM CHLORIDE 20 MEQ ER TABLET 40 MEQ PO (12:15)
--- NOTE | 2024-09-03 12:33 | PM.DS ---
DS: Admitting Diagnosis Discharge Date 09/03/2024 Admitting Diagnosis Hyperglycemia DS: Discharge Diagnosis Discharge Diagnosis (1) Diabetic ketoacidosis associated with type 2 diabetes mellitus: Code(s): E11.10 - Type 2 diabetes mellitus with ketoacidosis without coma Status: Acute (2) Dehydration: Code(s): E86.0 - Dehydration Status: Acute (3) Essential (primary) hypertension: Code(s): I10 - Essential (primary) hypertension Status: Acute (4) Mixed hyperlipidemia: Code(s): E78.2 - Mixed hyperlipidemia Status: Acute DS: Summary Hospital Course Hospital Course: 63-year-old female who presented to the ER with fatigue and hyperglycemia more than 500. Known history of diabetes but has not been on metformin for months. She used to take Ozempic but has not been on that either increased thirst blurry vision. No chest pain or shortness of breath. She has lost 20 lb unintentionally. She also reported for the last couple days she has not been able to hold anything down. In the ED blood pressure been running a bit high. Labs were significant for WBC 6.9 hemoglobin 15.1 sodium 147 carbon dioxide 27 anion gap 15 BUN 30 creatinine 1.1 glucose 5/62 calcium 10.7 total protein 9 beta hydroxybutyrate 2.22. Urinalysis positive for 3+ glucose and 1+ ketones. Specific gravity was high. Patient received IV fluid resuscitation received 8 units of IV insulin with normalization of her anion gap and improvement of glucose. Admitted IMU for further treatment. Mild DKA started on Lantus and SSI community educator hemoglobin A1c came back at 13. Lantus 20 units and prandial insulin. ict educator consulted. Discharge on insulin at home. Abnormal taste could be related to hyperglycemia however no other specific local pathology noted. Will continue to monitor with improvement of blood sugar during the hospital stay. Dehydration with hyponatremia nephrology consulted in sodium level has normalized now. Hypertension Hyperlipidemia DVT prophylaxis Time Spent with Patient Time attestation: Total time spent providing and/or coordinating discharge services: 35 minutes Exam Narrative: General: Well-appearing female tired and weak not in acute distress Oral mucosa with no acute lesions noted Respiratory: Lungs are clear to auscultation bilaterally. Cardiovascular: Regular rate and rhythm with S1-S2. Gastrointestinal: Abdomen is soft, nontender, and nondistended with positive bowel sounds. Skin: Warm and dry. No rash or lesions on limited exam. Extremities: No cyanosis, clubbing, or edema. Radial and pedal pulses intact. Neurological: Alert. Cranial nerves 2-12 are grossly intact. No gross focal deficits to casual conversation. Psychiatric: Pleasant and cooperative with normal mood and affect. Judgment and insight intact. DS: Data Data Completed and Pending Labs on day of discharge: Labs from last 24 hours 09/03/24 09/03/24 09/03/24 11:29 07:44 04:46 WBC 5.3 RBC 4.27 Hgb 12.4 Hct 36.7 L MCV 85.9 MCH 29.0 MCHC 33.8 RDW 13.5 Plt Count 209 MPV 11.4 H Immature Gran % (Auto) 0.2 Neut % (Auto) 47.4 Lymph % (Auto) 42.5 Davison % (Auto) 7.9 Eos % (Auto) 1.1 Baso % (Auto) 0.9 Lymph # (Auto) 2.27 Davison # (Auto) 0.4 Eos # (Auto) 0.1 Baso # (Auto) 0.1 Abs Immat Gran (auto) 0.01 Absolute Neuts (auto) 2.5 Absolute Nucleated RBC 0.000 Nucleated RBC % 0.0 Sodium 141 Potassium 3.0 L Chloride 109 H Carbon Dioxide 24 Anion Gap 8 BUN 17 Creatinine 0.70 Estim Creat Clear Calc 71 Estimated GFR > 60 Glucose 135 H POC Capillary Glucose 229 H 138 H Calcium 8.5 Magnesium 2.0 Total Bilirubin 2.8 H Direct Bilirubin AST 48 H ALT 38 H Alkaline Phosphatase 81 Total Protein 7.0 Albumin 3.6 09/03/24 09/02/24 09/02/24 04:43 19:49 15:30 WBC RBC Hg
== END 2024-09-03 13:32 | disposition home or self-care (01) ==
LOC: ANHED 17:42 → ANHIMU 20:44
PROVIDERS: Internal Medicine Nephrology; Physician Assistant; Admitting Provider Family Medicine; Emergency Provider Emergency Medicine; PCP Family Medicine; Visit Provider Internal Medicine
DX: E11.10 Type 2 diabetes mellitus with ketoacidosis without coma (principal); E87.0 Hyperosmolality and hypernatremia; E86.0 Dehydration; E11.69 Type 2 diabetes mellitus with other specified complication; I10 Essential (primary) hypertension; D50.9 Iron deficiency anemia, unspecified; E55.9 Vitamin D deficiency, unspecified; E78.00 Pure hypercholesterolemia, unspecified; E78.2 Mixed hyperlipidemia; F32.9 Major depressive disorder, single episode, unspecified; Z79.82 Long term (current) use of aspirin; Z79.899 Other long term (current) drug therapy
CPT/HCPCS: 36415; 36600; 80048; 80053; 81001; 81003; 82010; 82248; 82375; 82805; 82948; 83036; 83050; 83735; 84100; 84443; 85018; 85025; 85027; 96361; 96374; 96375; 96376; 99285; A9270; G0378; J1815; J2405; J2765; J7030

== ENCOUNTER 2024-10-18 14:36 | Outpatient (RCR) | payer BC, SELFPAY | END 2025-01-02 13:25 | disposition home or self-care (01) | LOC: ANHDMC 14:36 | PROVIDERS: PCP Family Medicine; Visit Provider Nurse Practitioner Adult Health | DX: E11.10 Type 2 diabetes mellitus with ketoacidosis without coma (principal); E11.65 Type 2 diabetes mellitus with hyperglycemia; Z71.89 Other specified counseling | CPT/HCPCS: G0108 ==

== ENCOUNTER 2024-11-11 11:17 | Outpatient (CLI) | payer BC, SELFPAY ==
--- NOTE | ~2024-11-11 | US_ITS ---
COMPLETE ABDOMINAL ULTRASOUND Ordering provider: Yuki Ho APRN History: . R79.89 - Other specified abnormal findings of blood chemi... . Comparison: None. FINDINGS: LIVER: Normal size and echotexture. No focal hepatic lesions or perihepatic fluid collections are rosita ntified. Normal flow of the portal vein. GALLBLADDER: Unremarkable. No evidence for stones, sludge, gallbladder wall thickening or pericholecy stic fluid collections. A negative sonographic Rucker's sign was noted. BILIARY DUCTS: No evidence for intra or extrahepatic biliary dilation. Common bile duct measures 4.7 mm in diameter which is within normal limits. PANCREAS: Normal echotexture and size. SPLEEN: Normal size, echotexture and contour and measures 8.2 cm in length. KIDNEYS: Right measures 9.8x 5.2x 6.1 cm in length and the left 9.2x 6x 4.4 cm in length. There is no evidence for hydronephrosis, solid renal mass, renal calculi or perinephric fluid collections. No re nal cysts. UPPER ABDOMINAL AORTA: Normal in caliber. Proximal aorta measures 2.2 cm. Mid aorta measures 1.9 cm. Distal aorta measures 1.9 cm. IVC: Patent. FREE FLUID: None. IMPRESSION: Unremarkable complete ultrasound of the abdomen. Reviewed, dictated and finalized at location A. F PHYSICAL THERAPY ASSISTANT
== END 2024-11-11 11:18 | disposition home or self-care (01) ==
LOC: MICIMG 11:17
PROVIDERS: PCP Family Medicine; Visit Provider Nurse Practitioner Adult Health
DX: R79.89 Other specified abnormal findings of blood chemistry (principal)
CPT/HCPCS: 76700

== ENCOUNTER 2024-11-11 15:33 | Outpatient (CLI) | payer BC, SELFPAY ==
--- NOTE | ~2024-11-11 | MM_ITS ---
EXAMINATION: MM screening [facility] BI w david HISTORY: Screening TECHNIQUE: Craniocaudal and mediolateral oblique 3-D tomosynthesis images were obtained and synthetic 2-D images were generated. CAD analysis was submitted and interpreted. COMPARISON: 05/15/2023 and dating back to 11/05/2020 BREAST PARENCHYMAL COMPOSITION: There are scattered areas of fibroglandular density. FINDINGS: Stable intramammary lymph node within the upper outer quadrant of left breast. Otherwise stable parenchymal pattern without suspicious microcalcifications, architectural distortion , discrete masses or significant asymmetry. IMPRESSION: 1. No mammographic evidence of malignancy. 2. Recommend routine screening mammography in one year. BI-RADS Category 2: Benign finding(s). Reviewed, dictated and finalized at location A. CARRIER
== END 2024-11-11 15:34 | disposition home or self-care (01) ==
PROVIDERS: PCP Family Medicine; Visit Provider Obstetrics & Gynecology
DX: Z12.31 Encounter for screening mammogram for malignant neoplasm of breast (principal)
CPT/HCPCS: 77063; 77067